=== PATIENT | female | born 1995 | race Caucasian/White ===

== ENCOUNTER → 2016-05-01 | Outpatient (CLI) | payer OTHER ==
[~2016-05-01] MED LIST: BCPILLS PO; DIAZ-165 PO; VENL1CAP92 PO
== END | disposition home or self-care (01) ==
LOC: C.LABBFT 12:35
PROVIDERS: ATTEND Nurse Practitioner
DX: Z11.59 Encounter for screening for other viral diseases (principal)

== ENCOUNTER 2021-03-19 11:35 | Inpatient (IN) ==
[2021-03-19] MEDS ORDERED: OXYTOCIN 30 UNITS/500 ML BAG IV PRN (15:06)
[2021-03-19] MEDS ORDERED: DINOPROSTONE 10 MG INSERT PV ONE (15:16)
--- NOTE | 2021-03-19 15:21 | History & Physical Report ---
Date of Service March 19, 2021 Assessment & Plan (1) : Plan: Cervidil for cervical ripening Admission and Anticipated Discharge Date Admission Date: March 19, 2021 History of Present Illness Chief Complaint: induction of labor for post dates Primary Care Provider: Sriram Villavicencio MD 25 F P2002 at 40.4 weeks admitted to L&D for induction of labor for post-dates. GBS is negative. Covid is pending. Allergies Allergy/AdvReac Type Severity Reaction Status Date / Time pollen extracts Allergy Mild Difficulty Verified 03/19/21 14:03 Breathing procaine Allergy Mild GI SYMPTOMS Verified 07/31/20 13:03 oxycodone AdvReac Unknown GI UPSET Verified 07/31/20 13:03 Home Medications Medication Instructions Recorded Confirmed Type vit 168-iron 27 mg-folic 1 cap PO cap 07/31/20 07/31/20 History acid 800 mcg-omega3 235 mg capsule (One-A-Day -1) ferrous sulfate 325 mg (65 mg 325 mg PO DAILY 03/19/21 03/19/21 History iron) tablet Patient History Medical History Abnormal PFTs (pulmonary function tests) Panic disorder Smoker Surgical History H/O wisdom tooth extraction Social History Smoking Status: Current every day smoker Cigarettes Per Day: 10; Hx Alcohol Use: No Hx Substance Use: No Preferred Language: Portuguese Communication Ability: Effective Car Cooper Required: No Beliefs That Will Affect Care: None marital status: Single Current Living Situation: Family Other Information That Helps Us Care for You: No Feels Safe at Home: Yes Safety Concerns: Feels Safe At This Time 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 Review of Systems All systems reviewed & are unremarkable except as noted in HPI & below Physical Exam Constitutional: WD/WN, vitals as above Eyes: PERRL, conjunctivae normal, anicteric sclerae Cardiovascular: RRR, no murmur, no edema Skin: no rashes, warm and dry Neurologic: patellar DTR's 2+ bilat, sensation intact Psychiatric: A+Ox3, euthymic affect Genitourinary: no vaginal lesions, no adnexal mass normal external appearance OB Exam Abdomen: + fundal height and + vertex Manual OB Exam: + cervical dilation fingertip, + cervical effacement 50% and + station high OB Exam Monitor Tracing: + external FHT monitor used, + external uterine monitor used, + category I and + normal FHT variability cervix posterior will need cervical ripening Results & Data ([facility]) Vital Signs (Past 12 Hours) Vital Signs Temp Pulse Resp BP 03/19/21 14:06 18 03/19/21 13:44 36.9 C 118 H 18 119/64 Monitoring External Monitor Cat 1 without any contractions
[2021-03-19 15:33] LABS: Hematocrit (blood only) 36.3 % (37-47); Mean Corpuscular Hemoglobin 31.5 pg (25-34); Mean Corpuscular Hgb Conc 33.1 g/dL (32-36); Mean Corpuscular Volume 95.3 fL (80-100); Mean Platelet Volume 10.1 fL (7.4-10.4); Platelet Count 239 K/uL (130-400); RDW Coefficient of Variation 14.8 % (11.5-14.5); Red Blood Count 3.81 M/uL (4.2-5.4); White Blood Count 17.73 K/uL (4.8-10.8)
--- NOTE | 2021-03-19 16:19 | Labor Progress Brief Note ---
Date of Service March 19, 2021 Assessment & Plan Admission and Anticipated Discharge Date Admission Date: March 19, 2021 Physical Exam Genitourinary: Cervidil 10 mg placed vaginally. FHT Cat 1. Results & Data ([facility]) Vital Signs (Past 12 Hours) Vital Signs Temp Pulse Resp BP 03/19/21 16:10 85 116/65 03/19/21 14:06 18 03/19/21 13:44 36.9 C 118 H 18 119/64
[2021-03-19] MEDS ORDERED: BUTORPHANOL TARTRATE 1 MG/ML VIAL IV PRN (21:41)
[2021-03-20] MEDS: miSOPROStoL 50 MCG TAB PO SCH ×6 (06:13→23:34)
[2021-03-20] MEDS ORDERED: FLUCONAZOLE 50 MG TAB PO ONE (09:36)
--- NOTE | 2021-03-20 09:43 | Obstetrical Progress Note ---
Date of Service March 20, 2021 Assessment & Plan Admission and Anticipated Discharge Date Admission Date: March 19, 2021 Subjective Patient is seen and examined. I reviewed her chart from office and confirmed with her. She is a 25-year-old -0-0-2 at 40 weeks and 5 days of gestation she was admitted yesterday for induction of labor for postdates. Received 1 dose of Cervidil and p.o. Cytotec this morning. She feels mildly irregular contractions but they are not painful. She denies leakage of fluid or vaginal bleeding. She reports good movements. Her has been complicated by tobacco use, she has been doing smoking 5 to 6 cigarettes/day and plans to quit. She has a history of chlamydia in 2018 but was treated and has been negative since then. She denies any history of gonorrhea nor herpes. She takes iron and vitamin. GBS is negative. Vital signs stable afebrile, heart rate is reassuring, [place] shows mild irregular contractions patient does not feel a lot of time. Vaginal exam, abundant white curdy discharge consistent with [place], cervix is 1 cm dilated, 50% effaced, posterior and -3 station. Still unfavorable cervix, continue with cervical ripening with second dose of p.o. Cytotec. Patient denies vaginal Cytotec and vaginal Cervidil. Diflucan 150 mg once for [place]. Continue to monitor closely. Results & Data ([facility]) Vital Signs (Past 12 Hours) Vital Signs Temp Pulse Resp BP 03/20/21 09:00 18 03/20/21 08:35 18 03/20/21 08:13 18 03/20/21 07:01 36.9 C 18 03/20/21 06:59 86 112/59 L 03/20/21 04:00 36.9 C 86 18 112/56 L 03/19/21 22:01 36.7 C 86 18 113/55 L
[2021-03-20 09:54] LABS: Hematocrit (blood only) 37.9 % (37-47); Hemoglobin 12.5 g/dL (12.0-16.0); Mean Corpuscular Hemoglobin 31.3 pg (25-34); Mean Platelet Volume 10.2 fL (7.4-10.4); Platelet Count 233 K/uL (130-400); RDW Coefficient of Variation 14.7 % (11.5-14.5); Red Blood Count 3.99 M/uL (4.2-5.4); White Blood Count 15.89 K/uL (4.8-10.8)
[2021-03-20 10:14] LABS: Albumin Globulin Ratio 1.3 (0.9-2); Albumin Level 3.1 gm/dl (3.4-5.0); BUN Creatinine Ratio 17.5 (10-20); Bilirubin,Total 0.2 mg/dl (0.2-1.0); Creatinine Clr Calc Pharmacy 144.6 ml/min; Est GFR (African American) 149.3 ml/min; Est GFR (Non-African American) 128.8 ml/min; Globulin 2.4 gm/dl (2.5-4.0); Potassium 3.6 mmol/L (3.5-5.1); Total Protein 5.5 gm/dl (6.0-8.3)
[2021-03-20 10:19] LABS: ANC (manual) 10.96 K/uL (1.4-6.5); Basophils # (manual) 0.14 K/uL (0-0.2); Basophils % (manual) 0.9 %; Lymphocytes % (manual) 23.9 %; Monocytes # (manual) 0.99 K/uL (0.11-0.59); Monocytes % (manual) 6.2 %; Neutrophils # (manual) 10.96 K/uL (1.4-6.5)
[2021-03-20] MEDS ORDERED: BUTORPHANOL TARTRATE 1 MG/ML VIAL IV PRN (15:27)
--- NOTE | 2021-03-20 15:37 | Obstetrical Progress Note ---
Date of Service March 20, 2021 Assessment & Plan Admission and Anticipated Discharge Date Admission Date: March 19, 2021 Subjective Patient is reevaluated She feels about the same, mild irregular ctxs but not painful yet. Disappointed that she is not in labor. No LOF/VB FM's 3rd dose of Cytotec was not ginve on time at 14:10 FHR reassuring VE: patient is very sensitive to touch and uncomfortable during exam, cervix unchanged still 1cm, 50%, posterior and high, more softer Discussed options for cervical ripening like intravaginal Cervidil, Conklin Balloon , PO Cytotec She desires to continue with PO cytotec now and will consider Conklin baloon if no change in 4 hours All questions were answered. Results & Data ([facility]) Vital Signs (Past 12 Hours) Vital Signs Temp Pulse Resp BP 03/20/21 15:08 36.5 C 80 18 115/54 L 03/20/21 11:39 37.0 C 82 18 114/57 L 03/20/21 09:00 18 03/20/21 08:35 18 03/20/21 08:13 18 03/20/21 07:01 36.9 C 18 03/20/21 06:59 86 112/59 L 03/20/21 04:00 36.9 C 86 18 112/56 L
[2021-03-20] MEDS ORDERED: OXYTOCIN 30 UNITS/500 ML BAG IV PRN (18:47)
--- NOTE | 2021-03-20 19:10 | Obstetrical Progress Note ---
Date of Service March 20, 2021 Assessment & Plan Admission and Anticipated Discharge Date Admission Date: March 19, 2021 Subjective Patient has been sleeping, she does not have any ctxs nor pain She is worried that she is not in labor since yesterday. Asking for C section. Discussed IOL and what to expect and indications and risks of C section. She is asking for other options of IOL. Discussed cervical ripening with cervix or Cytotec, Conklin balloon with Pitocin or only Pitocin. She has multiple questions about all options. Answered them all. Discussed pain management with IV meds and epidural. She likes to think about it and decide. Results & Data ([facility]) Vital Signs (Past 12 Hours) Vital Signs Temp Pulse Resp BP 03/20/21 15:08 36.5 C 80 18 115/54 L 03/20/21 11:39 37.0 C 82 18 114/57 L 03/20/21 09:00 18 03/20/21 08:35 18 03/20/21 08:13 18
[2021-03-20] MEDS: LACTATED RINGER'S 1,000 ML IV PRN (22:35)
[2021-03-20] MEDS ORDERED: ONDANSETRON INJ 2 MG/ML 2 ML VIAL IV PRN (22:49)
--- NOTE | 2021-03-20 22:49 | Obstetrical Progress Note ---
Date of Service March 20, 2021 Assessment & Plan Admission and Anticipated Discharge Date Admission Date: March 19, 2021 Subjective After discussion with her patient decided to try Conklin bulb and Pitocin together. She was hungry and she wanted to eat dinner. She ate dinner and took shower and now ready. She states she is scared from Conklin bulb but still wants to try. I offered her to ask me to stop if she gets uncomfortable. Patient is placed in dorsal light of a position and cervix was checked to be 1 to 2 cm dilated 50% effaced head at -3 station. An speculum was placed in the patient's vagina again noted to abundant white curdy discharge consistent with vaginal candidiasis. Cervix was visualized and grasped with ring forceps. 22 [place] Conklin catheter was inserted from cervix and balloon was inflated x3 about every time it came out could not stay inside of the cervix. Unable to push inside more due to patient discomfort. And procedure was ended to Conklin speculum and instruments were removed from patient's vagina. Plan to start Pitocin per protocol and epidural for pain. Patient desires not to have any IV pain medications but wants to have epidural as soon as she can. heart rate is category 1 toco has been registering contractions every 5 to 6 minutes. Patient does not feel them. Continue to monitor closely. Results & Data ([facility]) Vital Signs (Past 12 Hours) Vital Signs Temp Pulse Resp BP 03/20/21 22:10 89 120/57 L 03/20/21 19:44 36.9 C 18 03/20/21 19:32 36.9 C 84 18 105/59 L 03/20/21 15:08 36.5 C 80 18 115/54 L 03/20/21 11:39 37.0 C 82 18 114/57 L
[2021-03-21] MEDS: LACTATED RINGER'S 1,000 ML IV PRN ×3 (01:04→14:23)
[2021-03-21] MEDS: miSOPROStoL 50 MCG TAB PO SCH ×2 (04:10→06:03)
--- NOTE | 2021-03-21 08:00 | Labor Progress Brief Note ---
Date of Service March 21, 2021 Assessment & Plan Admission and Anticipated Discharge Date Admission Date: March 19, 2021 Physical Exam Genitourinary: Manual OB Exam: + cervical dilation 2 cm, + cervical effacement 50% and + station -2 OB Exam Monitor Tracing: + external FHT monitor used, + external uterine monitor used, + category I and + normal FHT variability AROM with Amni-hook clear fluid Results & Data ([facility]) Vital Signs (Past 12 Hours) Vital Signs Temp Pulse Resp BP 03/21/21 07:04 36.9 C 82 18 101/50 L 03/21/21 07:00 18 03/21/21 06:30 18 03/21/21 06:02 80 92/55 L 03/21/21 06:00 18 03/21/21 05:30 18 03/21/21 05:19 81 101/56 L 03/21/21 05:00 18 03/21/21 04:30 18 03/21/21 04:00 94 H 18 106/56 L 03/21/21 03:30 18 03/21/21 02:34 36.7 C 77 18 109/53 L 03/21/21 02:30 18 03/21/21 02:00 18 03/21/21 01:39 88 107/52 L 03/21/21 01:30 18 03/21/21 01:00 18 03/21/21 00:30 18 03/21/21 00:29 75 107/54 L 03/21/21 00:00 18 03/20/21 23:32 82 111/56 L 03/20/21 23:30 18 03/20/21 23:00 18 03/20/21 22:47 36.9 C 92 H 18 114/59 L 03/20/21 22:10 89 120/57 L
[2021-03-21] MEDS ORDERED: OXYTOCIN 30 UNITS/500 ML BAG IV PRN ×2 (09:48→16:16)
--- NOTE | 2021-03-21 13:12 | Obstetrical Progress Note ---
Date of Service March 21, 2021 Physical Exam Genitourinary Manual OB Exam: + cervical dilation 2 cm, + cervical effacement 50%, + station - 2 and + amniotic fluid (bag still seems to be intact. AROM copious fluid with meconium noted) meconium Results & Data ([facility]) Vital Signs (Past 12 Hours) Vital Signs Temp Pulse Resp BP 03/21/21 12:51 36.5 C 86 18 118/59 L 03/21/21 12:04 82 111/62 03/21/21 10:56 36.9 C 86 18 105/62 03/21/21 10:01 80 107/58 L 03/21/21 09:00 36.8 C 83 18 107/59 L 03/21/21 08:02 83 108/56 L 03/21/21 07:04 36.9 C 82 18 101/50 L 03/21/21 07:00 18 03/21/21 06:30 18 03/21/21 06:02 80 92/55 L 03/21/21 06:00 18 03/21/21 05:30 18 03/21/21 05:19 81 101/56 L 03/21/21 05:00 18 03/21/21 04:30 18 03/21/21 04:00 94 H 18 106/56 L 03/21/21 03:30 18 03/21/21 02:34 36.7 C 77 18 109/53 L 03/21/21 02:30 18 03/21/21 02:00 18 03/21/21 01:39 88 107/52 L 03/21/21 01:30 18
[2021-03-21] MEDS ORDERED: SODIUM CHLORIDE 0.9% INJ 10 ML VIAL ONE (13:50)
[2021-03-21] MEDS ORDERED: ePHEDrine sulfate 50 MG/ML AMP ONE (13:50)
[2021-03-21] MEDS ORDERED: BUPIVACAINE 0.25% 30 ML VIAL ONE (13:50)
[2021-03-21] MEDS ORDERED: fentaNYL 2MCG/ML ROPIVACAINE 1.25MG/ML 100 ML BAG EPI ONE (13:51)
[2021-03-21] MEDS ORDERED: fentaNYL citrate 100 MCG/2 ML VIAL ONE (13:51)
[2021-03-21] MEDS ORDERED: NALOXONE HCL 0.4 MG/1 ML VIAL/CARP IV PRN (14:07)
[2021-03-21] MEDS ORDERED: PROMETHAZINE HCL 6.25 MG in SODIUM CHLORIDE 0.9% 50 ML IV PRN (14:07)
[2021-03-21] MEDS ORDERED: NALBUPHINE HCL INJ 10 MG/ML AMP IV PRN (14:07)
[2021-03-21] MEDS ORDERED: ePHEDrine sulfate 50 MG/ML AMP IV PRN (14:07)
[2021-03-21] MEDS ORDERED: fentaNYL 2MCG/ML ROPIVACAINE 1.25MG/ML 100 ML BAG EPI PRN (14:07)
[2021-03-21] MEDS ORDERED: NALOXONE HCL 1 MG in SODIUM CHLORIDE 0.9% 1000ML 1,000 ML IV PRN (14:07)
[2021-03-21] MEDS ORDERED: ONDANSETRON INJ 2 MG/ML 2 ML VIAL IV PRN (14:07)
[2021-03-21] MEDS ORDERED: diphenhydrAMINE 50 MG/ML VIAL IV PRN (14:07)
[2021-03-21] MEDS ORDERED: HYDROCORTISONE ACETATE 25 MG SUPP PR PRN (16:16)
[2021-03-21] MEDS ORDERED: DIPHTHERIA/TETANUS/PERTUSSIS 0.5 ML SYR/VIAL IM ONE (16:16)
[2021-03-21] MEDS ORDERED: bisacodyL 10 MG SUPP PR PRN (16:16)
[2021-03-21] MEDS ORDERED: SUPERCREAM 0.870% 15 GM JAR EXT PRN (16:16)
[2021-03-21] MEDS ORDERED: BENZOCAINE 20% AER SPR 82.5 GM CAN EXT PRN (16:16)
--- NOTE | 2021-03-21 16:21 | Delivery Summary ---
Vaginal Delivery Summary Date of Service March 21, 2021 Vaginal Delivery Summary Delivery Note live female [place] over intact perineum with delayed cord clamping and Apgars 8/9 weight pending. Cord blood obtained followed by spontaneous delivery of intact placenta. No tears. EBL 100 ml. Final sponge and instrument count are correct. mom and baby stable.
--- NOTE | 2021-03-21 17:36 | Anesthesia Procedure Note ---
Date of Service March 21, 2021 Anesthesia Post Epidural Note Vital Signs Vital Signs: Temp Pulse Resp BP Pulse Ox 36.9 C 83 18 108/57 L 99 03/21/21 15:00 03/21/21 17:26 03/21/21 15:45 03/21/21 17:26 03/21/21 16:34 Pain Intensity Bilateral Abdomen: Pain Intensity: 5 Notes Mental Status: alert / awake / arousable Nausea / Vomiting: adequately controlled Pain: adequately controlled Airway Patency, RR, SpO2: stable & adequate BP & HR: stable & adequate Hydration State: stable & adequate Neuraxial Anesthesia: was administered and sensory block is resolving Anesthetic Complications: no major complications apparent and Pt Satisfied with anesthetic care Epidural: Removed without complications and With tip intact
[2021-03-21] MEDS: DOCUSATE SODIUM 100 MG CAP PO SCH (20:43)
--- NOTE | 2021-03-21 21:47 | Anesthesiology Consultation ---
Date of Service March 21, 2021 Assessment & Plan Chart Review Chart Review: Patient NOT seen in Pre Admission Testing and Acceptable Risk for Labor Epidural Consults Requested none ASA ASA2 Proposed Anesthesia Anesthesia Type: Labor Epidural Risk / Benefits Reviewed With: PT / POA / Parent / Guardian, Accepts Plan and Informed Consent Obtained History Height/Weight Height: 5 ft 2 in Weight: 76.657 kg Allergies Allergy/AdvReac Type Severity Reaction Status Date / Time pollen extracts Allergy Mild Difficulty Verified 03/19/21 14:03 Breathing procaine Allergy Mild GI SYMPTOMS Verified 07/31/20 13:03 oxycodone AdvReac Unknown GI UPSET Verified 07/31/20 13:03 Medications Home Medications Medication Instructions Recorded Confirmed Last Taken vit 168-iron 27 mg-folic 1 cap PO cap 07/31/20 07/31/20 03/19/21 acid 800 mcg-omega3 235 mg capsule (One-A-Day -1) ferrous sulfate 325 mg (65 mg 325 mg PO DAILY 03/19/21 03/19/21 03/19/21 iron) tablet Active Medications Generic Name Dose Route Start Last Admin Trade Name Freq PRN Reason Stop Dose Admin Docusate Sodium 100 mg 03/21/21 21:00 03/21/21 20:43 Docusate Sodium 100 Mg Cap PO 04/20/21 20:59 100 mg DAILY@ HUMA Administration Oxytocin 30 units in 500 mls @ 333.333 mls/hr 03/19/21 15:06 03/21/21 17:08 Pitocin IV 04/18/21 15:05 Infused .Q1H30M PRN Titration Bleeding Control Protocol 20 UNITS/HR Oxytocin 30 units in 500 mls @ 0 mls/hr 03/21/21 09:48 03/21/21 16:01 Pitocin IV 03/22/21 18:46 0 units/hr .Q0M PRN 0 mls/hr Labor Induction/Augmentation Titration Protocol 0 UNITS/HR Past Medical History Medical History Abnormal PFTs (pulmonary function tests) Panic disorder Smoker Exercise / Class Metabolic Activity II 4-5 Yardwork/Stairs/Walk up hill Past Surgical History Surgical History H/O wisdom tooth extraction Past Anesthesia History No Hx of Anesthesia Complications and No Family Hx of Anesthesia Complications History of PONV No Hx of PONV and No Hx of Motion Sickness Social History Smoking Status: Current every day smoker tobacco type: cigarettes Smoking cigarettes per day: 10 Hx Alcohol Use: No Hx Substance Use: No substance use type: does not use Physical Exam Vital Signs Last Vital Signs Temp 36.9 C 03/21/21 15:00 Pulse 84 03/21/21 18:11 Resp 18 03/21/21 15:45 BP 110/60 03/21/21 18:11 Pulse Ox 99 03/21/21 16:34 ENMT Mouth: no dentition abnormality Thyromental Distance: > or= 3.5 Finger Breadths Mallampati Class: II Neck normal visual inspection Respiratory normal respiratory effort Auscultation: lungs clear to auscultation bilaterally Cardiovascular Rate/Rhythm: regular rate and regular rhythm Psychiatric Orientation: alert Testing Laboratory Results 03/20/21 09:41 03/20/21 09:41
[2021-03-22 06:59] LABS: Hematocrit (blood only) 34.4 % (37-47); Hemoglobin 11.2 g/dL (12.0-16.0); Mean Corpuscular Hgb Conc 32.6 g/dL (32-36); Mean Corpuscular Volume 95.3 fL (80-100); Mean Platelet Volume 10.4 fL (7.4-10.4); Platelet Count 203 K/uL (130-400); RDW Coefficient of Variation 14.8 % (11.5-14.5); RDW Standard Deviation 51.4 fL (36.4-46.3); Red Blood Count 3.61 M/uL (4.2-5.4); White Blood Count 17.54 K/uL (4.8-10.8)
--- NOTE | 2021-03-22 07:45 | Obstetrical Progress Note ---
Date of Service March 22, 2021 Assessment & Plan Admission and Anticipated Discharge Date Admission Date: March 19, 2021 Subjective Patient is seen and examined. She feels well, no complaints. Ambulating without dizziness Voiding without difficulty Tolerating regular diet with out N&V Bleeding is minimal No fever/ chills/ CP/ SOB/ N&V/ Leg pain Breast feeding without problems Vital Signs Temp Pulse Pulse Resp BP BP Pulse Ox 03/22/21 03:21 36.6 C 77 18 113/67 03/21/21 23:59 36.7 C 76 18 125/78 03/21/21 19:07 36.7 C 82 16 123/69 98 03/21/21 18:11 84 110/60 03/21/21 17:56 87 111/61 03/21/21 17:41 92 H 111/65 03/21/21 17:26 83 108/57 L 03/21/21 17:11 78 108/55 L 03/21/21 16:41 78 115/55 L 03/21/21 16:34 84 99 03/21/21 16:29 84 98 03/21/21 16:26 86 116/57 L 03/21/21 16:24 87 98 03/21/21 16:19 92 H 98 03/21/21 16:14 95 H 100 03/21/21 16:11 93 H 119/60 03/21/21 16:09 92 H 99 03/21/21 16:04 91 H 97 03/21/21 16:01 86 90 03/21/21 15:59 107 H 99 03/21/21 15:56 86 116/58 L 03/21/21 15:54 95 H 99 03/21/21 15:49 95 H 98 03/21/21 15:45 18 03/21/21 15:44 85 99 03/21/21 15:42 102 H 104/63 03/21/21 15:39 90 99 03/21/21 15:34 80 98 03/21/21 15:30 18 03/21/21 15:29 93 H 99 03/21/21 15:26 83 114/57 L 03/21/21 15:24 87 99 03/21/21 15:19 92 H 98 03/21/21 15:15 18 03/21/21 15:14 86 98 03/21/21 15:12 84 111/57 L 03/21/21 15:09 82 98 03/21/21 15:04 84 98 03/21/21 15:00 36.9 C 18 03/21/21 14:59 90 99 03/21/21 14:54 84 98 03/21/21 14:51 82 114/56 L 03/21/21 14:49 80 99 03/21/21 14:45 85 18 102/50 L 03/21/21 14:44 86 99 03/21/21 14:39 87 107/56 L 100 03/21/21 14:36 80 108/56 L 03/21/21 14:34 79 108/57 L 100 03/21/21 14:33 88 115/58 L 03/21/21 14:31 88 117/58 L 03/21/21 14:30 18 03/21/21 14:29 94 H 99 03/21/21 14:28 98 H 122/70 03/21/21 14:25 86 123/66 03/21/21 14:24 84 100 03/21/21 14:23 81 130/55 L 03/21/21 14:21 88 134/65 03/21/21 14:19 87 100 03/21/21 14:14 93 H 99 03/21/21 14:09 98 H 99 03/21/21 12:51 36.5 C 86 18 118/59 L 03/21/21 12:04 82 111/62 03/21/21 10:56 36.9 C 86 18 105/62 03/21/21 10:01 80 107/58 L 03/21/21 09:00 36.8 C 83 18 107/59 L 03/21/21 08:02 83 108/56 L Intake and Output 03/21/21 03/22/21 03/22/21 22:59 06:59 14:59 Intake Total 877.717 / 3189.617 Output Total 1050 / 2375 Balance -172.283 / 814.617 Intake: IV 877.717 / 3189.617 Lactated Ringer's 1,000 ml @ 272.917 / 2506.017 125 mls/hr IV .Q8H PRN Rx#: [id number] Oxytocin 30 units In 500 ml @ 604.8 / 629.367 20 UNITS/HR 333.333 mls/hr IV . Q1H30M PRN Rx#:[id number] Output: Urine 750 / 2075 Urine Amount (Catheter) 300 / 300 Straight 300 / 300 Other: Weight 76.657 kg Lab Results 03/19/21 03/20/21 03/20/21 Range/Units 15:18 09:41 09:41 WBC 17.73 H 15.89 H (4.8-10.8) K/uL RBC 3.81 L 3.99 L (4.2-5.4) M/uL Hgb 12.0 12.5 (12.0-16.0) g/dL Hct 36.3 L 37.9 (37-47) % MCV 95.3 95.0 (80-100) fL MCH 31.5 31.3 (25-34) pg MCHC 33.1 33.0 (32-36) g/dL RDW Std Deviation 51.0 H 51.0 H (36.4-46.3) fL RDW Coeff of Tejal 14.8 H 14.7 H (11.5-14.5) % Plt Count 239 233 (130-400) K/uL MPV 10.1 10.2 (7.4-10.4) fL Neutrophils % (Manual) 69.0 % Lymphocytes % (Manual) 23.9 % Monocytes % (Manual) 6.2 % Basophils % (Manual) 0.9 % Neutrophils # (Manual) 10.96 H (1.4-6.5) K/uL Total Absolute Neuts 10.96 H (1.4-6.5) K/uL Lymphocytes # (Manual) 3.80 H (1.2-3.4) K/uL Total Abs Lymphocytes 3.80 H (1.2-3.4) K/uL Monocytes # (Manual) 0.99 H (0.11-0.59) K/uL Basophils # (Manual) 0.14 (0-0.2) K/uL Sodium 134 L (136-145) mmol/L Potassium 3.6 (3.5-5.1) mmol/L Chloride 109 H (98-107) mmol/L Carbon Dioxide 19 L (21-32) mmol/L Anion Gap 6 (3-11) BUN 10 (6-23) mg/dl Creatinine 0.57 L (0.6-1.2) mg/dl Est Cr Clr Drug Dosing 144.6 ml/min Est GFR ( Amer) 149.3 ml/min Est GFR (Non-Af Amer) 128.8 ml/min BUN/Creatinine Ratio 17.5 (10-20) Glucose 121 H (70-99) mg/dl Calcium 8.0 L (8.5-10.1) mg/dl Total Bilirubin 0.2 (0.2-1.0) mg/dl AST 15 (13-39) U/L ALT 12 (7-52) U/L Alkaline Phosphatase 169 H (34-104) U/L Total Protein 5.5 L (6.0-8.3) gm/dl Albumin 3.1 L (3.4-5.0) gm/dl Globulin 2.4 L (2.5-4.0) gm/dl Albumin/Globulin Ratio 1.3 (0.9-2) 03/22/21 Range/Units 06:41 WBC 17.54 H (4.8-10.8) K/uL RBC 3.61 L (4.2-5.4) M/uL Hgb 11.2 L (12.0-16.0) g/dL Hct 34.4 L (37-47) % MCV 95.3 (80-100) fL MCH 31.0 (25-34) pg MCHC 32.6 (32-36) g/dL RDW Std Deviation 51.4 H (36.4-46.3) fL RDW Coeff of Tejal 14.8 H (11.5-14.5) % Plt Count 203 (130-400) K/uL MPV 10.4 (7.4-10.4) fL Neutrophils % (Manual) % Lymphocytes % (Manual) % Monocytes % (Manual) % Basophils % (Manual) % Neutrophils # (Manual) (1.4-6.5) K/uL Total Absolute Neuts (1.4-6.5) K/uL Lymphocytes # (Manual) (1.2-3.4) K/uL Total Abs Lymphocytes (1.2-3.4) K/uL Monocytes # (Manual) (0.11-0.59) K/uL Basophils # (Manual) (0-0.2) K/uL Sodium (136-145) mmol/L Potassium (3.5-5.1) mmol/L Chloride (98-107) mmol/L Carbon Dioxide (21-32) mmol/L Anion Gap (3-11) BUN (6-23) mg/dl Creatinine (0.6-1.2) mg/dl Est Cr Clr Drug Dosing ml/min Est GFR ( Amer) ml/min Est GFR (Non-Af Amer) ml/min BUN/Creatinine Ratio (10-20) Glucose (70-99) mg/dl Calcium (8.5-10.1) mg/dl Total Bilirubin (0.2-1.0) mg/dl AST (13-39) U/L ALT (7-52) U/L Alkaline Phosphatase (34-104) U/L Total Protein (6.0-8.3) gm/dl Albumin (3.4-5.0) gm/dl Globulin (2.5-4.0) gm/dl Albumin/Globulin Ratio (0.9-2) PE: General: Alert, orientedx3, NAD Abd: soft, NT, fundus firm, below Umbilicus Perineum intact, Lochia rubra minimal Ext; NT, no edema AP: 25 yo s/p , ppd# 1 VSS Afebrile doing well Elevated WBCC, afebrile, baseline 15K during Repeat in am Continue routine care All questions were answered D/C home tomorrow Results & Data ([facility]) Vital Signs (Past 12 Hours) Vital Signs Temp Pulse Resp BP 03/22/21 03:21 36.6 C 77 18 113/67 03/21/21 23:59 36.7 C 76 18 125/78
[2021-03-22] MEDS ORDERED: FERROUS SULFATE 325 MG TAB PO SCH (08:00)
[2021-03-22] MEDS: FERROUS SULFATE 325 MG TAB PO SCH (08:36)
[2021-03-22] MEDS: PRENATAL VITAMIN 1 TAB PO SCH (08:36)
[2021-03-22] MEDS: DOCUSATE SODIUM 100 MG CAP PO SCH ×2 (08:36→20:00)
[2021-03-22] MEDS: ACETAMINOPHEN 325 MG TAB PO PRN (20:00)
[2021-03-22] MEDS ORDERED: bisacodyL 5 MG TABEC PO SCH (20:00)
[2021-03-23] MEDS: IBUPROFEN 600 MG TAB PO PRN ×2 (06:05→12:17)
[2021-03-23 06:52] LABS: Hematocrit (blood only) 36.6 % (37-47); Mean Corpuscular Hemoglobin 31.6 pg (25-34); Mean Corpuscular Hgb Conc 32.8 g/dL (32-36); Mean Corpuscular Volume 96.3 fL (80-100); Mean Platelet Volume 10.5 fL (7.4-10.4); Platelet Count 197 K/uL (130-400); RDW Coefficient of Variation 14.9 % (11.5-14.5); RDW Standard Deviation 52.3 fL (36.4-46.3); White Blood Count 14.69 K/uL (4.8-10.8)
[2021-03-23 07:10] LABS: ALC (manual) 3.22 K/uL (1.2-3.4); Eosinophils # (manual) 0.13 K/uL (0-0.5); Eosinophils % (manual) 0.9 %; Lymphocytes # (manual) 3.22 K/uL (1.2-3.4); Lymphocytes % (manual) 21.9 %; Monocytes # (manual) 1.16 K/uL (0.11-0.59); Monocytes % (manual) 7.9 %; Myelocytes # (manual) 0.38 K/uL (0-0); Myelocytes % (manual) 2.6 %; Neutrophils % (manual) 66.7 %
[2021-03-23] MEDS: FERROUS SULFATE 325 MG TAB PO SCH (08:37)
[2021-03-23] MEDS: DOCUSATE SODIUM 100 MG CAP PO SCH (08:37)
[2021-03-23] MEDS: PRENATAL VITAMIN 1 TAB PO SCH (08:37)
--- NOTE | 2021-03-23 09:46 | Obstetrical Progress Note ---
Date of Service March 23, 2021 Subjective Ambulation: ambulating normally Voiding: no voiding problems Passing Gas:: Yes Diet Tolerance:: regular diet Feeding Type:: bottle feeding Current Pain Level(1-10): 0 doing well plans for d/c today Physical Exam Constitutional WD/WN, vitals as above comfortable abdomen soft and non-tender fundus firm no edema neg Reynaldo's for d/c Results & Data ([facility]) Vital Signs (Past 12 Hours) Vital Signs Temp Pulse Resp BP Pulse Ox 03/23/21 08:10 36.6 C 66 20 105/67 03/23/21 00:00 36.6 C 82 16 101/57 L 97 Laboratory Results 03/19/21 03/20/21 03/20/21 15:18 09:41 09:41 WBC 17.73 H 15.89 H RBC 3.81 L 3.99 L Hgb 12.0 12.5 Hct 36.3 L 37.9 MCV 95.3 95.0 MCH 31.5 31.3 MCHC 33.1 33.0 RDW Std Deviation 51.0 H 51.0 H RDW Coeff of Tejal 14.8 H 14.7 H Plt Count 239 233 MPV 10.1 10.2 Neutrophils % (Manual) 69.0 Lymphocytes % (Manual) 23.9 Monocytes % (Manual) 6.2 Eosinophils % (Manual) Basophils % (Manual) 0.9 Myelocytes % (Man) Neutrophils # (Manual) 10.96 H Total Absolute Neuts 10.96 H Lymphocytes # (Manual) 3.80 H Total Abs Lymphocytes 3.80 H Monocytes # (Manual) 0.99 H Eosinophils # (Manual) Basophils # (Manual) 0.14 Myelocytes # (Manual) Sodium 134 L Potassium 3.6 Chloride 109 H Carbon Dioxide 19 L Anion Gap 6 BUN 10 Creatinine 0.57 L Est Cr Clr Drug Dosing 144.6 Est GFR ( Amer) 149.3 Est GFR (Non-Af Amer) 128.8 BUN/Creatinine Ratio 17.5 Glucose 121 H Calcium 8.0 L Total Bilirubin 0.2 AST 15 ALT 12 Alkaline Phosphatase 169 H Total Protein 5.5 L Albumin 3.1 L Globulin 2.4 L Albumin/Globulin Ratio 1.3 03/22/21 03/23/21 06:41 06:35 WBC 17.54 H 14.69 H RBC 3.61 L 3.80 L Hgb 11.2 L 12.0 Hct 34.4 L 36.6 L MCV 95.3 96.3 MCH 31.0 31.6 MCHC 32.6 32.8 RDW Std Deviation 51.4 H 52.3 H RDW Coeff of Tejal 14.8 H 14.9 H Plt Count 203 197 MPV 10.4 10.5 H Neutrophils % (Manual) 66.7 Lymphocytes % (Manual) 21.9 Monocytes % (Manual) 7.9 Eosinophils % (Manual) 0.9 Basophils % (Manual) Myelocytes % (Man) 2.6 Neutrophils # (Manual) 9.80 H Total Absolute Neuts 9.80 H Lymphocytes # (Manual) 3.22 Total Abs Lymphocytes 3.22 Monocytes # (Manual) 1.16 H Eosinophils # (Manual) 0.13 Basophils # (Manual) Myelocytes # (Manual) 0.38 H Sodium Potassium Chloride Carbon Dioxide Anion Gap BUN Creatinine Est Cr Clr Drug Dosing Est GFR ( Amer) Est GFR (Non-Af Amer) BUN/Creatinine Ratio Glucose Calcium Total Bilirubin AST ALT Alkaline Phosphatase Total Protein Albumin Globulin Albumin/Globulin Ratio
[2021-03-23] MEDS: ACETAMINOPHEN 325 MG TAB PO PRN (13:17)
== END 2021-03-23 14:10 | disposition home or self-care (01) | DRG 807 ==
LOC: 4S1 13:31 → 4S2 03-21 19:35